=== PATIENT | male | born 1990 | race Caucasian/White ===

== ENCOUNTER 2017-07-27 06:13 | Emergency (ER) | payer BC ==
[~2017-07-27] VITALS: Ht 177.8 cm; Wt 75.3 kg
[2017-07-27 06:20] VITALS: Ht 177.8 cm; Wt 75.3 kg
[2017-07-27] MEDS ORDERED: ONDANSETRON 4 MG INJ IV STA ×2 (06:52→09:16)
[2017-07-27] MEDS ORDERED: KETOROLAC 30 MG INJ IV STA (06:52)
[2017-07-27 07:29] LABS: BASOPHILS % 0.3 % (0.0-2.0); HEMATOCRIT 42.6 % (42.0-52.0); HEMOGLOBIN 14.7 g/dl (14.0-18.0); LYMPHOCYTES # 0.9 10^3/ul (0.8-2.9); LYMPHOCYTES % 10.9 % (15.0-51.0); MEAN CORPUSCULAR HEMOGLOBIN 29.3 pg (29.0-33.0); MEAN CORPUSCULAR HGB CONC 34.5 g/dl (32.0-37.0); MEAN CORPUSCULAR VOLUME 84.9 fl (82.0-101.0); MEAN PLATELET VOLUME 9.1 fl (7.4-10.4); MONOCYTE # 0.3 10^3/ul (0.3-0.9); MONOCYTES % 3.5 % (0.0-11.0); NEUTROPHIL # 6.6 10^3/ul (1.6-7.5); NEUTROPHILS % 84.9 % (39.0-77.0); PLATELET COUNT 253 10^3/UL (140-415); RED BLOOD COUNT 5.02 10^6/ul (4.70-6.10); RED CELL DISTRIBUTION WIDTH 12.5 % (11.5-14.5); WHITE BLOOD COUNT 7.8 10^3/ul (4.8-10.8)
[2017-07-27] MEDS ORDERED: LORAZEPAM 2 MG INJ IV ONE (07:30)
[2017-07-27 07:53] LABS: ALBUMIN/GLOBULIN RATIO 1.51; BILIRUBIN,INDIRECT 0.9 mg/dl (0-1.1); BILIRUBIN,TOTAL 0.9 mg/dl (0.2-1.3); CALCIUM 10.3 mg/dl (8.4-10.2); CREATININE 0.98 mg/dl (0.61-1.24); POTASSIUM 3.7 mmol/L (3.5-5.1); TOTAL PROTEIN 8.3 g/dl (6.1-8.1)
--- NOTE | 2017-07-27 08:16 | RADRPT ---
PROCEDURE: US Abdomen (right upper quadrant). CLINICAL INDICATION: Abdominal pain. TECHNIQUE: Multiple real-time longitudinal and transverse images of the right upper quadrant of th e abdomen were acquired utilizing a curved array transducer. Images were reviewed on a high-resoluti on PACS workstation. COMPARISON: None FINDINGS: The liver is normal in size and echotexture without focal mass or intrahepatic biliary dilatation. There is normal hepatopedal flow within the main portal vein. The gallbladder is well displayed wit hout filling defects or wall thickening The common bile duct measures 3.4 mm in maximal dimension. The visualized portions of the pancreas are unremarkable with obscuration of the tail of the pancre as. No free fluid is identified. The right kidney measures 9.3 cm in length. There is normal echogenicity within the right kidney. There is no perinephric fluid collection. No hydronephrosis, mass, or calculus is seen. IMPRESSION: 1. Unremarkable right upper quadrant ultrasound. RPTAT: [facility] Physician Romina Date Time Electronically viewed and signed by Physician Romina on 07/27/2017 08:16 /
--- NOTE | 2017-07-27 08:21 | ERD ---
ER Documentation Chief Complaint Chief Complaint pt has vomiting since yesterday HPI This is a 26-year-old male who presents emergency department today complaining of vomiting since yesterday morning. States he has not been able to eat anything. She has some abdominal pain. States his whole body and face is numb. States that he cannot move. States that he smokes marijuana but denies any other drug use. Denies any fevers or chills, diarrhea or dysuria ROS All systems reviewed and are negative except as per history of present illness. Medications Home Meds Active Scripts Electrolyte,Oral (Pedialyte) 1,000 Ml Solution, 100 ML PO Q6 Y for VOMITTING, # 1000 ML Prov:SHAKIRA LOUIE PA-C 07/27/17 Acetaminophen* (Tylophen*) 500 Mg Capsule, 1 CAP PO Q6H Y for PAIN AND OR ELEVATED TEMP, #30 CAP Prov:SHAKIRA LOUIE PA-C 07/27/17 Ondansetron Hcl* (Zofran*) 4 Mg Tablet, 4 MG PO Q6H for NAUSEA AND/OR VOMITING, #30 TAB Prov:SHAKIRA LOUIE PA-C 07/27/17 Discontinued Scripts Ondansetron Hcl* (Zofran*) 4 Mg Tablet, 4 MG PO Q6H for NAUSEA AND/OR VOMITING, #30 TAB Prov:SHAKIRA LOUIE PA-C 07/27/17 Allergies Allergies: Coded Allergies: No Known Allergy (Unverified , 07/27/17) PMhx/Soc Medical and Surgical Hx: pt denies Medical Hx, pt denies Surgical Hx History of Surgery: No Anesthesia Reaction: No Hx Alcohol Use: Yes (Occasionally) Hx Substance Use: Yes (Marijuana) Hx Tobacco Use: Yes (Occasional smoker) Smoking Status: Current some day smoker Physical Exam Vitals Vital Signs Date Time Temp Pulse Resp B/P Pulse Ox O2 Delivery O2 Flow Rate FiO2 07/27/17 10:00 98.7 60 16 138/73 98 Room Air 07/27/17 07:44 99.2 61 16 135/81 99 Room Air 07/27/17 06:20 98.0 69 16 153/87 99 Physical Exam Const: sitting in wheelchair, NAD Head: Atraumatic Eyes: Normal Conjunctiva. PERRLA. EOM intact ENT: Normal External Ears, Nose and Mouth. Uvula midline. Neck: Full range of motion..~ No meningismus. Resp: Clear to auscultation bilaterally Cardio: Regular rate and rhythm, no murmurs Abd: Soft, gastric and right upper quadrant tenderness non distended. Normal bowel sounds no lower abdominal pain. No tenderness at McBurney's. Skin: No petechiae or rashes Back: No midline or flank tenderness Ext: No cyanosis, or edema. Carpal pedal spasms bilaterally. Neur: Awake and alert Psych: Normal Mood and Affect Result Diagram: 07/27/17 0702 07/27/17 0702 Results 24 hrs Laboratory Tests Test 07/27/17 07:02 07/27/17 10:25 White Blood Count 7.810^3/ul Red Blood Count 5.0210^6/ul Hemoglobin 14.7g/dl Hematocrit 42.6% Mean Corpuscular Volume 84.9fl Mean Corpuscular Hemoglobin 29.3pg Mean Corpuscular Hemoglobin Concent 34.5g/dl Red Cell Distribution Width 12.5% Platelet Count 42954^3/UL Mean Platelet Volume 9.1fl Neutrophils % 84.9% Lymphocytes % 10.9% Monocytes % 3.5% Eosinophils % 0.0% Basophils % 0.3% Nucleated Red Blood Cells % 0.0/100WBC Neutrophils # 6.610^3/ul Lymphocytes # 0.910^3/ul Monocytes # 0.310^3/ul Eosinophils # 0.010^3/ul Basophils # 0.010^3/ul Nucleated Red Blood Cells # 0.010^3/ul Sodium Level 141mmol/L Potassium Level 3.7mmol/L Chloride Level 101mmol/L Carbon Dioxide Level 23mmol/L Anion Gap 21 Blood Urea Nitrogen 14mg/dl Creatinine 0.98mg/dl Glucose Level 132mg/dl Calcium Level 10.3mg/dl Total Bilirubin 0.9mg/dl Direct Bilirubin 0.00mg/dl Indirect Bilirubin 0.9mg/dl Aspartate Amino Transf (AST/SGOT) 34IU/L Alanine Aminotransferase (ALT/SGPT) 45IU/L Alkaline Phosphatase 91IU/L Total Protein 8.3g/dl Albumin 5.0g/dl Globulin 3.30g/dl Albumin/Globulin Ratio 1.51 Lipase 40U/L Urine Color YELLOW Urine Clarity CLEAR Urine pH 8.0 Urine Specific [place] 1.027 Urine Ketones 2+mg/dL Urine Nitrite NEGATIVEmg/dL Urine Bilirubin NEGATIVEmg/dL Urine Urobilinogen 1+mg/dL Urine Leukocyte Esterase NEGATIVELeu/ul Urine Microscopic RBC 2/HPF Urine Microscopic WBC 0/HPF Urine Hemoglobin NEGATIVEmg/dL Urine Glucose NEGATIVEmg/dL Urine Total Protein 2+mg/dl Urine Opiates Screen Positive Urine Barbiturates Negative Urine Amphetamines Screen Negative Urine Benzodiazepines Screen Negative Urine Cocaine Screen Negative Urine Cannabinoids Positive Current Medications Medications (Trade) Dose Ordered Sig/Abhilash Route PRN Reason Start Time Stop Time Status Last Admin Dose Admin Ondansetron HCl (Zofran Inj) 4 mg ONCE STAT IV 07/27/17 06:52 07/27/17 06:56 DC 07/27/17 07:04 Ketorolac Tromethamine (Toradol) 30 mg ONCE STAT IV 07/27/17 06:52 07/27/17 06:56 DC 07/27/17 07:05 Lorazepam 1 mg 1 mg ONCE ONCE IV 07/27/17 07:30 07/27/17 07:31 DC 07/27/17 07:14 Sodium Chloride (NS) 500 ml @ 500 mls/hr Q1H ONCE IV 07/27/17 08:30 07/27/17 09:29 DC 07/27/17 08:40 Ondansetron HCl (Zofran Inj) 4 mg ONCE STAT IV 07/27/17 09:16 07/27/17 09:17 DC 07/27/17 09:24 Morphine Sulfate (morphine) 4 mg ONCE STAT IV 07/27/17 09:16 07/27/17 09:17 DC 07/27/17 09:24 DIAGNOSTIC IMAGING REPORT Patient: POP KURTZ : 1990 Age: 26 Sex: M MR #: [id number] DOS: 07/27/17 0652 Ordering MD: SHAKIRA LOUIE PA-C Location: [facility] Room/Bed: PROCEDURE: US Abdomen (right upper quadrant). CLINICAL INDICATION: Abdominal pain. TECHNIQUE: Multiple real-time longitudinal and transverse images of the right upper quadrant of the abdomen were acquired utilizing a curved array transducer. Images were reviewed on a high-resolution PACS workstation. COMPARISON: None FINDINGS: The liver is normal in size and echotexture without focal mass or intrahepatic biliary dilatation. There is normal hepatopedal flow within the main portal vein. The gallbladder is well displayed without filling defects or wall thickening The common bile duct measures 3.4 mm in maximal dimension. The visualized portions of the pancreas are unremarkable with obscuration of the tail of the pancreas. No free fluid is identified. The right kidney measures 9.3 cm in length. There is normal echogenicity within the right kidney. There is no perinephric fluid collection. No hydronephrosis, mass, or calculus is seen. IMPRESSION: 1. Unremarkable right upper quadrant ultrasound. RPTAT: [facility] Physician Romina Date Time Electronically viewed and signed by Darien Mix Physician on 07/27/2017 08: 16 JH/ CC: SHAKIRA LOUIE PA-C Procedures/MDM This is a 26-year-old male who presents the emergency department today complaining of vomiting and abdominal pain. Patient indicated that he had been vomiting since yesterday. He was also reporting that "my whole face and body are numb and I cannot feel my body". States he smokes marijuana but denies any drug use. On physical exam patient had epigastric and right upper quadrant tenderness and therefore did obtain laboratory workup as well as imaging Laboratory workup shows no elevated white blood cell count. He is not anemic. Platelets are within normal limits. Calcium is very mildly elevated otherwise electro lites are within normal limits. Liver enzymes are within normal limits. Lipase is within normal limits. UA shows no evidence of infection. Urine drug screen is positive for cannabinoids and opiates. Patient denies taking any opioids. I do not know if the morphine that he was given here in the emergency department would react that clinically however patient did indicate that he went out drinking the night before. Right upper quadrant ultrasound is unremarkable. There is no evidence of filling defects in the gallbladder wall thickening Patient symptoms at this time consistent with vomiting and abdominal pain and numbness. Low suspicion for acute surgical abdomen. Patient has no lower abdominal pain for acute appendicitis. I do not feel the patient requires a head CT scan at this time. I have low suspicion for acute hemorrhage, mass, abscess meningitis. Patient was given Ativan, Toradol and Zofran here in the emergency department. He indicated that he could not urinate because he had not eaten anything or had anything to drink since yesterday. Patient was given half a liter of IV fluids reported feeling significantly better. Patient was given a prescription for Tylenol, Zofran for home as well as Pedialyte. At this time the patient is stable for discharge and outpatient management. Patient should follow up with their PCP in the next 1-2 days. They may return to the emergency department sooner for any persistent or worsening of symptoms. Patient understood and agreed with the plan. Discussed the patient with Dr. Sanders and he is in agreement with the plan Departure Diagnosis: Primary Impression: Abdominal pain Abdominal location: upper abdomen, unspecified Qualified Code: R10.10 - Pain of upper abdomen Additional Impression: Numbness Condition: Fair SHAKIRA LOUIE PA-C Jul 27, 2017 08:21
[2017-07-27] MEDS ORDERED: SOD CHLORIDE 0.9% 500 ML IV ONE (08:30)
[2017-07-27] MEDS ORDERED: morphine 4 MG/ML VIAL IV STA (09:16)
[2017-07-27 10:54] LABS: ADD UMIC YES; UR ASCORBIC ACID NEGATIVE (NEGATIVE); UR BILIRUBIN (Dip) NEGATIVE (NEGATIVE); UR BLOOD (Dip) NEGATIVE (NEGATIVE); UR CLARITY CLEAR (CLEAR); UR COLOR YELLOW (YELLOW); UR GLUCOSE (Dip) NEGATIVE (NEGATIVE); UR KETONES (Dip) 2+ mg/dL (NEGATIVE); UR LEUKOCYTE ESTERASE (Dip) NEGATIVE Leu/ul (NEGATIVE); UR NITRITE (Dip) NEGATIVE (NEGATIVE); UR RBC 2 /HPF (0-5); UR SPECIFIC GRAVITY (Dip) 1.027 (1.003-1.030); UR TOTAL PROTEIN (Dip) 2+ mg/dl (NEGATIVE); UR UROBILINOGEN (Dip) 1+ mg/dL (NEGATIVE)
[2017-07-27 11:16] LABS: BARBITURATES Negative (NEGATIVE); BENZODIAZEPINES Negative (NEGATIVE); CANNABINOIDS Positive (NEGATIVE); COCAINE Negative (NEGATIVE); OPIATES Positive (NEGATIVE)
[2017-07-27] MEDS ORDERED: ONDA4TAB8 PO (11:22)
[2017-07-27] MEDS ORDERED: ACET500C5 PO (11:23)
[2017-07-27] MEDS ORDERED: ELEC100080 PO (11:24)
[2017-07-27 11:47] VITALS: BP 111/71; PULSE 64; RESP 18; TEMP 98.1
[2017-07-28] MEDS ORDERED: FAMO-96 PO (16:52)
[2017-07-28] MEDS ORDERED: METO10TA92 PO (16:52)
[2017-07-28] MEDS ORDERED: MAG-19 PO (16:52)
[2017-07-28] MEDS ORDERED: OMEP20CA16 PO (17:12)
== END 2017-07-27 11:48 | disposition home or self-care (01) ==
LOC: FTE 06:13
DX: R10.11 Right upper quadrant pain (principal); R20.0 Anesthesia of skin; F17.210 Nicotine dependence, cigarettes, uncomplicated; R40.2142 Coma scale, eyes open, spontaneous, at arrival to emergency department; R40.2252 Coma scale, best verbal response, oriented, at arrival to emergency department; R40.2362 Coma scale, best motor response, obeys commands, at arrival to emergency department
CPT/HCPCS: 36415; 76705; 80053; 80307; 81001; 83690; 85025; 96374; 96375; 96376; J1885; J2060; J2270; J2405; J7040; Z7502

== ENCOUNTER 2017-07-28 13:52 | Emergency (ER) | payer BC ==
[~2017-07-28] VITALS: Ht 167.6 cm; Wt 74.0 kg
[~2017-07-28 13:52] MED LIST: ACET500C5 PO; ELEC100080 PO; ONDA4TAB8 PO
[2017-07-28 13:57] VITALS: Ht 167.6 cm; Wt 74.0 kg
[2017-07-28] MEDS ORDERED: ONDANSETRON 4 MG INJ IV STA (14:41)
[2017-07-28] MEDS ORDERED: BELLADONNA/PHENOBARBITAL TAB PO STA (14:41)
[2017-07-28] MEDS ORDERED: SOD CHLORIDE 0.9% 1,000 ML IV STA (14:41)
[2017-07-28] MEDS ORDERED: FAMOTIDINE 20 MG INJ IV STA (14:41)
[2017-07-28] MEDS ORDERED: LIDOCAINE/MYLANTA 40 ML BTL PO STA (14:41)
[2017-07-28 15:10] LABS: BASOPHILS % 0.3 % (0.0-2.0); HEMATOCRIT 43.3 % (42.0-52.0); HEMOGLOBIN 14.9 g/dl (14.0-18.0); LYMPHOCYTES # 1.7 10^3/ul (0.8-2.9); LYMPHOCYTES % 23.9 % (15.0-51.0); MEAN CORPUSCULAR HEMOGLOBIN 29.2 pg (29.0-33.0); MEAN CORPUSCULAR HGB CONC 34.4 g/dl (32.0-37.0); MEAN CORPUSCULAR VOLUME 84.7 fl (82.0-101.0); MEAN PLATELET VOLUME 9.1 fl (7.4-10.4); MONOCYTE # 0.8 10^3/ul (0.3-0.9); MONOCYTES % 11.6 % (0.0-11.0); NEUTROPHIL # 4.5 10^3/ul (1.6-7.5); NEUTROPHILS % 63.9 % (39.0-77.0); PLATELET COUNT 257 10^3/UL (140-415); RED BLOOD COUNT 5.11 10^6/ul (4.70-6.10); RED CELL DISTRIBUTION WIDTH 12.2 % (11.5-14.5); WHITE BLOOD COUNT 7.1 10^3/ul (4.8-10.8)
[2017-07-28] MEDS ORDERED: METOCLOPRAMIDE 10 MG INJ IV ONE (15:30)
[2017-07-28 15:33] LABS: ALBUMIN 4.8 g/dl (3.3-4.9); ALBUMIN/GLOBULIN RATIO 1.23; BILIRUBIN,INDIRECT 0.9 mg/dl (0-1.1); BILIRUBIN,TOTAL 0.9 mg/dl (0.2-1.3); CREATININE 1.02 mg/dl (0.61-1.24); POTASSIUM 3.2 mmol/L (3.5-5.1); TOTAL PROTEIN 8.7 g/dl (6.1-8.1)
--- NOTE | 2017-07-28 15:47 | RADRPT ---
PROCEDURE: CT Abdomen and Pelvis without contrast. CLINICAL INDICATION: Abdominal pain TECHNIQUE: CT scan of the abdomen and pelvis was performed on a multidetector high-resolution CT s canner without intravenous contrast. Coronal and sagittal reformatted images were obtained from the axial source images. Images were reviewed on a high-resolution PACS workstation. The total exam CTD I equals 10mGy and the total exam DLP equals 559mGy-cm. One or more of the following dose reduction techniques were used: Automated exposure control, Adjustment of the mA and/or kV according to patien t size, and/or use of iterative reconstruction technique. DICOM images are available. COMPARISON: Correlation gallbladder ultrasound yesterday. FINDINGS: Evaluation of the solid organs is limited given the lack of intravenous contrast administration. The lung bases are clear. The liver, pancreas, spleen, and adrenals are grossly unremarkable. No focal pericholecystic inflammatory changes. No hydronephrosis. No renal or ureteral stone. No bowel obstruction. Normal-caliber appendix. No significant retroperitoneal lymphadenopathy, ascites or evidence of pneumoperitoneum. Osseous structures are grossly unremarkable. IMPRESSION: No acute intra-abdominal process identified. No renal or ureteral stone. No evidence of bowel obstruction or appendicitis. RPTAT: AA .Hill oJvel MD, MD Date Time Electronically viewed and signed by .Hill Jovel MD, on 07/28/2017 15:46 .T/
[2017-07-28 16:22] LABS: ADD UMIC YES; UR ASCORBIC ACID NEGATIVE (NEGATIVE); UR BILIRUBIN (Dip) NEGATIVE (NEGATIVE); UR BLOOD (Dip) NEGATIVE (NEGATIVE); UR CLARITY CLEAR (CLEAR); UR COLOR YELLOW (YELLOW); UR GLUCOSE (Dip) NEGATIVE (NEGATIVE); UR KETONES (Dip) 2+ mg/dL (NEGATIVE); UR LEUKOCYTE ESTERASE (Dip) NEGATIVE Leu/ul (NEGATIVE); UR MUCUS FEW /HPF (NONE SEEN); UR NITRITE (Dip) NEGATIVE (NEGATIVE); UR RBC 1 /HPF (0-5); UR SPECIFIC GRAVITY (Dip) 1.023 (1.003-1.030); UR TOTAL PROTEIN (Dip) 1+ mg/dl (NEGATIVE); UR UROBILINOGEN (Dip) 1+ mg/dL (NEGATIVE)
[2017-07-28] MEDS ORDERED: MAG-19 PO (16:52)
[2017-07-28] MEDS ORDERED: METO10TA92 PO (16:52)
[2017-07-28] MEDS ORDERED: FAMO-96 PO (16:52)
[2017-07-28] MEDS ORDERED: POTASSIUM CHLORIDE (SR) 10 MEQ TAB PO ONE (17:00)
[2017-07-28] MEDS ORDERED: OMEP20CA16 PO (17:12)
--- NOTE | 2017-07-28 17:19 | ERD ---
ER Documentation Chief Complaint Chief Complaint abd pain with vomiting x 3 days HPI This is a 26-year-old male that presents to the ER with his mother for ongoing burning epigastric pain that radiates up into his esophagus. Patient also complains of right upper quadrant pain, and states that pain is now moving down into the right lower quadrant. Patient does not have any fevers or chills. He does have nonbilious nonbloody vomiting. He does not have any diarrhea. Patient states he has not been able to eat anything in 3 days and has not had a bowel movement in 3 days. Patient tried taking Zofran, however states that the Zofran made it worse. He denies any chest pain or shortness of breath. ROS 12 point review of systems was done, all negative except per HPI.. Medications Home Meds Active Scripts Omeprazole* (Omeprazole*) 20 Mg Capsule.dr, 20 MG PO BID, #20 Prov:SHIRA JACOB 07/28/17 Metoclopramide* (Reglan*) 10 Mg Tablet, 10 MG PO Q6 Y for NAUSEA AND/OR VOMITING , #10 TAB Prov:HSIRA JACOB 07/28/17 Magaldrate/Simethicone* (Mylanta*) 355 Ml Susp, 30 ML PO QID Y for GASTROINTESTINAL UPSET, #1 BOTTLE Prov:SHIRA JACOB 07/28/17 Famotidine* (Pepcid*) 20 Mg Tablet, 40 MG PO BID for 14 Days, TAB Prov:SHIRA JACOB 07/28/17 Electrolyte,Oral (Pedialyte) 1,000 Ml Solution, 100 ML PO Q6 Y for VOMITTING, # 1000 ML Prov:SHAKIRA LOUIE PA-C 07/27/17 Acetaminophen* (Tylophen*) 500 Mg Capsule, 1 CAP PO Q6H Y for PAIN AND OR ELEVATED TEMP, #30 CAP Prov:SHAKIRA LOUIE PA-C 07/27/17 Ondansetron Hcl* (Zofran*) 4 Mg Tablet, 4 MG PO Q6H for NAUSEA AND/OR VOMITING, #30 TAB Prov:SHAKIRA LOUIE PA-C 07/27/17 Discontinued Scripts Ondansetron Hcl* (Zofran*) 4 Mg Tablet, 4 MG PO Q6H for NAUSEA AND/OR VOMITING, #30 TAB Prov:SHAKIRA LOUIE PA-C 07/27/17 Allergies Allergies: Coded Allergies: No Known Allergy (Unverified , 07/28/17) PMhx/Soc Medical and Surgical Hx: pt denies Medical Hx, pt denies Surgical Hx History of Surgery: No Anesthesia Reaction: No Hx Alcohol Use: Yes (Occasionally) Hx Substance Use: Yes (Marijuana) Hx Tobacco Use: Yes (Occasional smoker) Smoking Status: Never smoker Physical Exam Vitals Vital Signs Date Time Temp Pulse Resp B/P Pulse Ox O2 Delivery O2 Flow Rate FiO2 07/28/17 13:57 99.2 69 18 139/98 98 Physical Exam GENERAL: The patient is well developed and appropriate for usual state of health , in no apparent distress. HEENT: Atraumatic. CHEST: Clear to auscultation bilaterally. There are no rales, wheezes or rhonchi. HEART: Regular rate and rhythm. No murmurs, clicks, rubs or gallops. ABDOMEN: Soft, nontender and nondistended. Good bowel sounds. No rebound or guarding. No gross peritonitis. No gross organomegaly or masses. No Baeza sign or McBurney point tenderness. no pulsatile masses BACK: No midline or flank tenderness. NEURO: Alert and oriented. Result Diagram: 07/28/17 1454 07/28/17 1454 Results 24 hrs Laboratory Tests Test 07/28/17 14:54 07/28/17 15:30 White Blood Count 7.110^3/ul Red Blood Count 5.1110^6/ul Hemoglobin 14.9g/dl Hematocrit 43.3% Mean Corpuscular Volume 84.7fl Mean Corpuscular Hemoglobin 29.2pg Mean Corpuscular Hemoglobin Concent 34.4g/dl Red Cell Distribution Width 12.2% Platelet Count 79687^3/UL Mean Platelet Volume 9.1fl Neutrophils % 63.9% Lymphocytes % 23.9% Monocytes % 11.6% Eosinophils % 0.0% Basophils % 0.3% Nucleated Red Blood Cells % 0.0/100WBC Neutrophils # 4.510^3/ul Lymphocytes # 1.710^3/ul Monocytes # 0.810^3/ul Eosinophils # 0.010^3/ul Basophils # 0.010^3/ul Nucleated Red Blood Cells # 0.010^3/ul Sodium Level 140mmol/L Potassium Level 3.2mmol/L Chloride Level 98mmol/L Carbon Dioxide Level 26mmol/L Anion Gap 19 Blood Urea Nitrogen 17mg/dl Creatinine 1.02mg/dl Glucose Level 107mg/dl Calcium Level 10.0mg/dl Total Bilirubin 0.9mg/dl Direct Bilirubin 0.00mg/dl Indirect Bilirubin 0.9mg/dl Aspartate Amino Transf (AST/SGOT) 33IU/L Alanine Aminotransferase (ALT/SGPT) 41IU/L Alkaline Phosphatase 83IU/L Total Protein 8.7g/dl Albumin 4.8g/dl Globulin 3.90g/dl Albumin/Globulin Ratio 1.23 Lipase 37U/L Urine Color YELLOW Urine Clarity CLEAR Urine pH 6.0 Urine Specific [place] 1.023 Urine Ketones 2+mg/dL Urine Nitrite NEGATIVEmg/dL Urine Bilirubin NEGATIVEmg/dL Urine Urobilinogen 1+mg/dL Urine Leukocyte Esterase NEGATIVELeu/ul Urine Microscopic RBC 1/HPF Urine Microscopic WBC 2/HPF Urine Mucus FEW/HPF Urine Hemoglobin NEGATIVEmg/dL Urine Glucose NEGATIVEmg/dL Urine Total Protein 1+mg/dl Current Medications Medications (Trade) Dose Ordered Sig/Abhilash Route PRN Reason Start Time Stop Time Status Last Admin Dose Admin Sodium Chloride (NS) 1,000 ml @ 1,000 mls/hr Q1H STAT IV 07/28/17 14:41 07/28/17 15:40 DC 07/28/17 14:58 Ondansetron HCl (Zofran Inj) 4 mg ONCE STAT IV 07/28/17 14:41 07/28/17 14:42 DC 07/28/17 14:58 Famotidine (Pepcid Iv) 20 mg ONCE STAT IV 07/28/17 14:41 07/28/17 14:42 DC 07/28/17 14:58 Miscellaneous Medication (Gi Cocktail (2)) 40 ml ONCE STAT PO 07/28/17 14:41 07/28/17 14:42 DC 07/28/17 14:58 Belladonna/ Phenobarbital () 2 tab ONCE STAT PO 07/28/17 14:41 07/28/17 14:42 DC 07/28/17 14:58 Metoclopramide HCl (Reglan) 10 mg ONCE ONCE IV 07/28/17 15:30 12/19/17 15:31 DC 07/28/17 15:44 Potassium Chloride (Klor-Con 10) 30 meq ONCE ONCE PO 07/28/17 17:00 07/28/17 17:01 DC Procedures/MDM Differential Diagnosis: GERD, gastritis, peptic ulcer disease, pancreatitis, cholecystitis, choledocholithiasis, biliary colic, cholangitis, [id number] , ACS/GA, Pnuemonia.EKG was done 61bpm no ST elevation or t wave inversion. She likely has acid reflux. Patient's symptoms were made better here in the ER , blood work was drawn and patient was slightly hypokalemic, 30 mEq of potassium were given to the patient without any complications. He is afebrile and I doubt acute abdomen at this time. Patient will be sent home with famotidine, omeprazole, Mylanta, and reglan. I explained to patient and mother that he must see his primary care doctor and possibly see a applications tester if symptoms continue. My medical decision making with the patient and his mother they understand and agree with plan. Departure Diagnosis: Primary Impression: Epigastric pain Condition: Stable Patient Instructions: Gerd (Adult) Additional Instructions: Call your primary care doctor TOMORROW for an appointment during the next 1-2 days.See the doctor sooner or return here if your condition worsens before your appointment time. SHIRA JACOB Jul 28, 2017 17:19
== END 2017-07-28 17:24 | disposition home or self-care (01) ==
LOC: FTE 13:52
DX: R10.13 Epigastric pain (principal); F17.210 Nicotine dependence, cigarettes, uncomplicated
CPT/HCPCS: 36415; 74176; 80053; 81001; 83690; 85025; 93005; 96374; 96375; J2405; J2765; J7030; Z7502; Z7610

== ENCOUNTER 2019-04-23 05:02 | Emergency (ER) | payer SELFPAY ==
[~2019-04-23] VITALS: Ht 175.3 cm; Wt 66.9 kg
[~2019-04-23 05:02] MED LIST changes: +CIPR500T4 PO; +DOCU-144 PO; +FAMO-96 PO; +MAG-19 PO; +METO10TA92 PO; +METR500T PO; +OMEP20CA17 PO; +ONDA4TAB14 PO
[2019-04-23 05:08] VITALS: BP 157/88; PULSE 61; RESP 18; Ht 175.3 cm; Wt 66.9 kg
[2019-04-23] MEDS ORDERED: SOD CHLORIDE 0.9% 1,000 ML IV STA (05:19)
[2019-04-23] MEDS ORDERED: ONDANSETRON 4 MG INJ IV STA (05:19)
[2019-04-23] MEDS ORDERED: KETOROLAC 30 MG INJ IV STA (05:19)
[2019-04-23] MEDS ORDERED: morphine 4 MG/ML VIAL IV STA (06:20)
== END 2019-04-23 07:27 | disposition home or self-care (01) ==
LOC: FTE 05:02
DX: R10.11 Right upper quadrant pain (principal); F17.210 Nicotine dependence, cigarettes, uncomplicated
CPT/HCPCS: 74176; 80053; 83690; 85025; J1885; J2270; J2405; J7030; 36415; 96361; 96374; 96375

== ENCOUNTER 2019-04-24 08:58 | Inpatient (IN) | payer MEDICAID ==
[~2019-04-24] VITALS: Ht 175.3 cm; Wt 67.3 kg
[2019-04-24] MEDS ORDERED: ONDANSETRON 4 MG INJ IV STA (10:16)
[2019-04-24] MEDS ORDERED: SOD CHLORIDE 0.9% 1,000 ML IV STA (10:16)
[2019-04-24] MEDS ORDERED: morphine 4 MG/ML VIAL IV STA (10:16)
[2019-04-24] MEDS ORDERED: HYDROmorphONE 0.5 MG/0.5 ML SYG IV STA (12:13)
[2019-04-24] MEDS ORDERED: POTASSIUM CHLORIDE (SR) 20 MEQ TAB PO STA (12:17)
[2019-04-24] MEDS ORDERED: LIDOCAINE/MYLANTA 40 ML BTL PO ONE (14:00)
[2019-04-24] MEDS ORDERED: ONDANSETRON 4 MG INJ IV PRN (14:30)
[2019-04-24] MEDS ORDERED: ACETAMINOPHEN 325 MG TAB PO PRN (14:30)
[2019-04-24 15:24] VITALS: BP 134/89; PULSE 52; RESP 16
[2019-04-24 15:27] VITALS: Ht 175.3 cm; Wt 67.3 kg
[2019-04-24] MEDS ORDERED: morphine 2 MG INJ IV STA (15:28)
[2019-04-24] MEDS: ONDANSETRON 4 MG INJ IV PRN (17:29)
[2019-04-24] MEDS ORDERED: NACL 0.9% 3 ML SYG IV SCH (17:30)
[2019-04-24] MEDS: morphine 2 MG INJ IV PRN ×2 (17:30→21:22)
[2019-04-24] MEDS: NS + KCL 20 MEQ 1,000 ML IV SCH (19:00)
[2019-04-24 20:00] VITALS: BP 145/80; PULSE 54; RESP 18
[2019-04-24] MEDS ORDERED: KETOROLAC 30 MG INJ IV STA (22:39)
[2019-04-25] MEDS: morphine 2 MG INJ IV PRN ×5 (00:36→19:21)
[2019-04-25 02:00] VITALS: BP 133/83; PULSE 53; RESP 18
[2019-04-25] MEDS: NS + KCL 20 MEQ 1,000 ML IV SCH ×3 (03:04→19:44)
[2019-04-25] MEDS ORDERED: KETOROLAC 30 MG INJ IV STA (03:14)
[2019-04-25] MEDS: ONDANSETRON 4 MG INJ IV PRN ×3 (07:46→19:21)
[2019-04-25 08:17] VITALS: BP 141/91; PULSE 54; RESP 20
[2019-04-25] MEDS: PANTOPRAZOLE 40 MG INJ IV SCH ×2 (13:31→19:44)
[2019-04-25 13:55] VITALS: BP 151/80; PULSE 67; RESP 20
[2019-04-25 20:00] VITALS: BP 134/77; PULSE 72; RESP 18
[2019-04-26] MEDS ORDERED: ZOLPIDEM 5 MG TAB PO PRN (01:30)
[2019-04-26 01:52] VITALS: BP 118/79; PULSE 63; RESP 18
[2019-04-26] MEDS: NS + KCL 20 MEQ 1,000 ML IV SCH (04:19)
[2019-04-26] MEDS: PANTOPRAZOLE 40 MG INJ IV SCH ×2 (05:59→18:00)
[2019-04-26 08:06] VITALS: BP 134/84; PULSE 54; RESP 20
[2019-04-26 15:01] VITALS: BP 122/79; PULSE 63; RESP 18
[2019-04-26 19:46] VITALS: BP 121/78; PULSE 63; RESP 18
== END 2019-04-26 20:10 | disposition home or self-care (01) | DRG 440 ==
LOC: FTE 08:58 → 2NE 14:06
PROVIDERS: ADMIT Internal Medicine; ATTEND Internal Medicine
DX: K85.90 Acute pancreatitis without necrosis or infection, unspecified (principal); E87.6 Hypokalemia; K21.9 Gastro-esophageal reflux disease without esophagitis; R11.2 Nausea with vomiting, unspecified; F17.200 Nicotine dependence, unspecified, uncomplicated
CPT/HCPCS: 36415; 76705; 80053; 80061; 81003; 83036; 83690; 83735; 84100; 84484; 85025; 93005; 96374; 96375; C9113; J1170; J1885; J2270; J2405; J3480; J7030